=== PATIENT | female | born 1940 | race Caucasian/White ===

== ENCOUNTER 2016-10-30 17:04 | Observation (INO) | payer MEDICARE, OTHER ==
[~2016-10-30 17:04] MED LIST: B12; COZAAR100 M1 PO; DEXAMETHASONE4 MG PO; TEGRETOL X100 MG/TAB PO; VITAMIN D3
[2016-10-30] MEDS ORDERED: VITAMIN D31000 UNI3 PO (17:13)
[2016-10-30] MEDS ORDERED: TEGRETOL X100 MG/TAB PO (17:14)
[2016-10-30 17:39] LABS: BASO % 0.3 % (0-2); EOS % 0.1 % (0-7); HCT-HEMATOCRIT 39.5 % (34.0-49.0); HGB-HEMOGLOBIN 13.6 gm/dl (12.0-15.5); LYMPH % 18.6 % (20-45); LYMPH ABSOLUTE COUNT 1.4 tho/cmm (0.8-4.5); MCH (MEAN CORPUSCULAR HGB) 29.9 pg (28.0-32.0); MCHC MEAN CORPUSCULAR HGB CONC 34.4 % (32.0-36.0); MCV (MEAN CELL VOLUME) 86.8 fl (82.0-96.0); MEAN PLATELET VOLUME 9.1 cmc (9.4-12.4); MONO % 8.7 % (0-12); MONOCYTE ABSOLUTE COUNT 0.6 tho/cmm (0.0-1.2); NEUTROPHIL ABSOLUTE COUNT 5.3 tho/cmm (1.6-8.0); NEUTROPHIL-AUTOMATED 5.3 tho/cmm (1.6-8.0); NEUTROPHILS % 72.3 % (40-80); PLATELET COUNT 381 tho/cmm (150-450); RED BLOOD COUNT 4.55 mil/cmm (4.00-5.20); RED CELL DISTRIBUTION WIDTH 12.5 % (12.4-16.4); WHITE BLOOD COUNT 7.3 tho/cmm (4.0-10.0)
[2016-10-30 18:08] LABS: ANION GAP 13 mmol/L (0-20); BLOOD UREA NITROGEN 10 mg/dl (6-24); CALCIUM 8.9 mg/dl (8.5-10.5); CARBON DIOXIDE-VENOUS 24 mmol/L (22-32); CHLORIDE 100 mmol/l (96-110); CREATININE 0.71 mg/dl (0.50-1.10); GLUCOSE 93 mg/dL (70-110); POTASSIUM 3.6 mmol/L (3.7-5.1); SODIUM 133 mmol/L (135-145); eGFR VALUE FOR BLACK >90 mL/Min
[2016-10-31 02:35] LABS: TSH-THYROID STIMULATING HORM. 2.22 uIU/ml (0.40-3.80)
[2016-10-31 14:00] LABS: URINE APPEARANCE CLEAR; URINE BILIRUBIN NEGATIVE (NEG); URINE BLOOD SMALL (NEG); URINE COLOR YELLOW; URINE GLUCOSE (UA) NEGATIVE (NEG); URINE KETONE SMALL (NEG); URINE LEUKOCYTE ESTERASE POSITIVE (NEG); URINE NITRITE NEGATIVE (NEG); URINE PROTEIN NEGATIVE (NEG)
[2016-10-31 14:14] LABS: URINE BACTERIA 1+; URINE EPITHELIAL CELLS 0 /[HPF] (0-10); URINE RBC 0-1 /[HPF] (0-5)
[2016-12-31] MEDS ORDERED: ZOFRAN4 M2 PO (15:09)
== END 2016-10-31 15:10 ==
LOC: EDMED 17:04 → EMR2 21:11 → CAR1 21:15
PROVIDERS: Emergency Medicine; Physician Assistant; ADMIT Internal Medicine Clinical Cardiac Electrophysiology
DX: R07.9 Chest pain, unspecified (principal); R53.1 Weakness; I10 Essential (primary) hypertension; G40.909 Epilepsy, unspecified, not intractable, without status epilepticus; Z79.899 Other long term (current) drug therapy; Z88.1 Allergy status to other antibiotic agents; Z88.8 Allergy status to other drugs, medicaments and biological substances; Z90.710 Acquired absence of both cervix and uterus; Z98.890 Other specified postprocedural states
CPT/HCPCS: A9500; C8929; G0378; J2270; J2785